=== PATIENT | male | born 1940 | race Caucasian/White ===

== ENCOUNTER 2020-08-07 11:34 | Emergency (ER) | payer OTHER ==
[2020-08-07] MEDS ORDERED: LIDOCAINE 1% MPF 5 ML VIAL ONE (16:50)
[2020-08-07] MEDS ORDERED: TETANUS & DIPHTHERIA TOX,ADULT 0.5 ML VIAL ONE (16:50)
--- NOTE | 2020-08-07 17:17 | EDPHYS ---
Physician Documentation [facility] Name: Pan Garduno Age: 80 yrs Sex: Male : 1940 Arrival Date: 08/07/2020 Time: 11:40 Bed 28 Private MD: Woody Peña H ED Physician Scooter Espinoza HPI: 08/07 17:06 This 80 yrs old Male presents to ER via Ambulatory with complaints of jmm Laceration To Arm. 17:06 Onset: The symptoms/episode began/occurred acutely, just prior to arrival. Associated jmm signs and symptoms: Pertinent negatives: heavy bleeding, loss of consciousness, numbness distal to injury, suspected foreign body. It is unknown whether or not the patient has had similar symptoms in the past. This is an 80 year old male with a history of htn that presents to the ED with complaints of laceration to the right forearm. Patient sttes while using a drill, it spun the metal cutting his forearm. patient denies other injury. Not UTD on tetanus immunizations. . Historical: - Allergies: 12:18 No Known Allergies; ll1 - PMHx: 12:18 Hypertension; ll1 - PSHx: 12:18 knee sx-L; ll1 - Immunization history:: Client reports receiving the 2nd dose of the Covid vaccine, Last tetanus immunization: unknown, Flu vaccine is not up to date. - Social history:: Smoking status: Patient denies any tobacco usage or history of. ROS: 17:06 Constitutional: Negative for fever, chills, and weight loss, Cardiovascular: Negative jmm for chest pain, palpitations, and edema, Respiratory: Negative for shortness of breath, cough, wheezing, and pleuritic chest pain. 17:06 Skin: Positive for laceration(s). 17:06 All other systems are negative. Exam: 17:06 Constitutional: This is a well developed, well nourished patient who is awake, alert, jmm and in no acute distress. Head/Face: atraumatic. Eyes: EOMI, no conjunctival erythema appreciated ENT: Moist Mucus Membranes Neck: Trachea midline, Supple Chest/axilla: Normal chest wall appearance and motion. Cardiovascular: Regular rate and rhythm. No edema appreciated Respiratory: Normal respirations, no respiratory distress appreciated Abdomen/GI: Non distended, soft Back: Normal ROM 17:06 Skin: 2 cm laceration noted to the right forearm. 17:06 Neuro: Orientation: is normal, Mentation: is normal, Memory: is normal. 17:06 Psych: Behavior/mood is pleasant, cooperative. Vital Signs: 12:16 BP 145 / 91; Pulse 72; Resp 17; Temp 98.0; Pulse Ox 96% ; Weight 102.06 kg; Height 5 ll1 ft. 10 in. (177.80 cm); 17:24 BP 154 / 83; Pulse 81; Resp 16 S; Pulse Ox 97% on R/A; ca1 12:16 Body Mass Index 32.28 (102.06 kg, 177.80 cm) ll1 Laceration: 17:09 Wound Repair of 2cm ( 0.8in ) subcutaneous laceration to dorsal aspect of right [facility] forearm. Distal neuro/vascular/tendon intact. Anesthesia: Local anesthetic administered with 2 mls of 1% lidocaine. Wound prep: Moderate cleansing with betadine by me. Skin closed with 4 4-0 Prolene using simple sutures and sterile technique. Patient tolerated well. MDM: 16:25 Patient medically screened. [facility] 17:09 Data reviewed: vital signs, nurses notes. Counseling: I had a detailed discussion with benson the patient and/or guardian regarding: the historical points, exam findings, and any diagnostic results supporting the discharge/admit diagnosis, the need for outpatient follow up, to return to the emergency department if symptoms worsen or persist or if there are any questions or concerns that arise at home. 17:09 ED course: Patient given wound infection return precautions. patient understood and benson agrees with the plan of care. . 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 Exp: ca1 08/05/2021. Lot #: [id number]. } Route: IM; Site: left deltoid; 17:00 Follow up: Response: No adverse reaction ca1 16:51 Drug: Lidocaine (1 %) 20 ml {Note: by PA. Stan} Volume: 20 ml; Route: Infiltration; ca1 Disposition: 17:51 Co-signature as Attending Physician, Scooter Espinoza MD I agree with the assessment and tw4 plan of care. Disposition: 08/07/20 17:10 Discharged to Home. Impression: Right Arm Laceration. - Condition is Stable. - Discharge Instructions: Laceration Care, Adult. - Medication Reconciliation Form, Thank You Letter, Antibiotic Education, Prescription Opioid Use form. - Follow up: Woody Peña DO; When: 7 - 10 days; Reason: Recheck today's complaints, Continuance of care, Staple/Suture removal, Re-evaluation by your physician. Signatures: Stan Pardo PA PA jmm Wadley, Terrence, MD MD tw4 Sandra Lim RN RN ca1 Renu Moore RN RN ll1 Corrections: (The following items were deleted from the chart) 17:25 17:10 08/07/2020 17:10 Discharged to Home. Impression: Right Arm Laceration. Condition ca1 is Stable. Forms are Medication Reconciliation Form, Thank You Letter, Antibiotic Education, Prescription Opioid Use. Follow up: Woody Peña; When: 7 - 10 days; Reason: Recheck today's complaints, Continuance of care, Staple/Suture removal, Re-evaluation by your physician. benson
--- NOTE | 2020-08-07 17:17 | ER ---
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 Coronavirus screen: Client denies travel out of the [place] in the last 14 days. At this time, the client does not indicate any symptoms associated with coronavirus-19. Ebola Screen: Patient denies travel to an Ebola-affected area in the 21 days before illness onset. Complicating Factors: There are no complicating factors for this patient. Initial Sepsis Screen: Does the patient meet any 2 criteria? No. Patient's initial sepsis screen is negative. Does the patient have a suspected source of infection? Yes: Skin breakdown/wound. Risk Assessment: Do you want to hurt yourself or someone else? Patient reports no desire to harm self or others. Onset of symptoms was August 07, 2020. 12:16 Method Of Arrival: Ambulatory ll1 12:16 Acuity: ERIC 3 ll1 Historical: - Allergies: 12:18 No Known Allergies; ll1 - PMHx: 12:18 Hypertension; ll1 - PSHx: 12:18 knee sx-L; ll1 - Immunization history:: Client reports receiving the 2nd dose of the Covid vaccine, Last tetanus immunization: unknown, Flu vaccine is not up to date. - Social history:: Smoking status: Patient denies any tobacco usage or history of. Screenin:15 Abuse screen: Denies threats or abuse. Denies injuries from another. Nutritional ca1 screening: No deficits noted. Tuberculosis screening: No symptoms or risk factors identified. Fall Risk None identified. Assessment: 16:20 General: Appears in no apparent distress. comfortable, Behavior is calm, cooperative, ca1 appropriate for age. Pain: Complains of pain in dorsal aspect of right forearm Pain currently is 2 out of 10 on a pain scale. Neuro: Level of Consciousness is awake, alert, obeys commands, Oriented to person, place, time, situation. Derm: Skin is healthy with good turgor, Skin is pink, warm \T\ dry. Musculoskeletal: Circulation, motion, and sensation intact. Capillary refill < 3 seconds. Injury Description: Laceration sustained to dorsal aspect of right forearm is clean, 2.6 to 7.5 cm long, bleeding moderately, was sustained 4-6 hours ago. 17:24 Reassessment: Patient appears in no apparent distress at this time. Patient is alert, ca1 oriented x 3, equal unlabored respirations, skin warm/dry/pink. Vital Signs: 12:16 BP 145 / 91; Pulse 72; Resp 17; Temp 98.0; Pulse Ox 96% ; Weight 102.06 kg; Height 5 ll1 ft. 10 in. (177.80 cm); 17:24 BP 154 / 83; Pulse 81; Resp 16 S; Pulse Ox 97% on R/A; ca1 12:16 Body Mass Index 32.28 (102.06 kg, 177.80 cm) ll1 ED Course: 11:40 Patient arrived in ED. mr 11:40 Woody Peña DO is Private Physician. mr 11:47 Wound care: to puncture located on right arm was dressed with 4X4s, Kerlix, prior to em1 triage. 12:17 Triage completed. ll1 12:18 Arm band placed on. ll1 16:13 Stan Pardo PA is PHCP. [facility] 16:13 Scooter Espinoza MD is Attending Physician. [facility] 16:14 Sandra Lim, KAILASH is Primary Nurse. ca1 16:15 Patient has correct armband on for positive identification. Bed in low position. Call ca1 light in reach. Side rails up X 1. Pulse ox on. NIBP on. Warm blanket given. 16:37 Wound care: to puncture located on dorsal aspect of right forearm was cleaned with jp3 Hibiclens, debrided using Betadine scrub, irrigated with normal saline, Patient tolerated well. 17:10 Woody Peña DO is Referral Physician. [facility] 17:10 Assist provider with laceration repair on dorsal aspect of right forearm that was ca1 between 2.6 to 7.5 cm using sutures. Set up tray. Performed by Stan SABILLON Dressed with 4X4s, band aid, Kerlix, Patient tolerated well. 17:25 Patient did not have IV access during this emergency room visit. 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 Exp: ca1 08/05/2021. Lot #: [id number]. } Route: IM; Site: left deltoid; 17:00 Follow up: Response: No adverse reaction ca1 16:51 Drug: Lidocaine (1 %) 20 ml {Note: by PA. Stan} Volume: 20 ml; Route: Infiltration; ca1 Outcome: 17:10 Discharge ordered by MD. knowles 17:25 Discharged to home ambulatory. ca1 17:25 Condition: stable 17:25 Discharge instructions given to patient, Instructed on discharge instructions, follow up and referral plans. wound care, Demonstrated understanding of instructions, follow-up care, wound care. 17:25 Patient left the ED. ca1 Signatures: Stan Pardo PA PA jmm Polina Kirk Eric em1 Baldemar Brooks jp3 Sandra Lim RN RN ca1 Renu Moore RN RN ll1
[2020-08-07 18:07] VITALS: TEMP 98
[2020-08-07 18:08] VITALS: BP 154/83; O2SAT 97
== END 2020-08-07 17:25 | disposition home or self-care (01) ==
LOC: ER 11:34
PROC: 0JQG0ZZ Repair Right Lower Arm Subcutaneous Tissue and Fascia, Open Approach (ICD-10-PCS; principal; 2020-08-07)
DX: S51.811A Laceration without foreign body of right forearm, initial encounter (principal); W26.8XXA Contact with other sharp object(s), not elsewhere classified, initial encounter; Y93.9 Activity, unspecified; Y92.9 Unspecified place or not applicable; Z23 Encounter for immunization; I10 Essential (primary) hypertension
CPT/HCPCS: 90471; 90714; 99284

== ENCOUNTER 2020-08-16 06:32 | Emergency (ER) | payer OTHER ==
--- OUTSIDE RECORDS SUMMARY | 2020-08-16 06:34 | XMS REPORT | Continuity of Care Document ---
:1940 Author Organization [facility] t Address [address] [place] [address] Care Team Providers Name Role Phone Unavailable Unavailable Unavailable Payers Payer Name Policy Type Policy Number Effective Date Expiration Date S ource Problems Condition Condition Condition Status Onset Resolution Last Treating Co mments Source Name Details Category Date Date Treatment Clinician Date Effusion Effusion Diagnosis Active [facility] right of right [facility] Pain in Pain in Diagnosis Active [facility] right [facility] elbow elbow [facility] Allergies, Adverse Reactions, Alerts Allergy Allergy Status Severity Reaction(s) Onset Inactive Treating Comm ents Source Name Type Date Date Clinician No Known DA Active U 2019-04 [facility]ie - [facility] 00:[facility]: [place] 00 [facility] No Known DA Active U 2007-04 [facility] Contrast [facility]- [place] [facility] No Known DA Active U 2007-04 [facility] Drug 2- [place] Allergie 00:00: [facility] No Known DA Active U 2007-04 [facility] Food 2- [place] Allergie 00:00: [facility] No Known DA Active U 2007-04 [facility] Other 2- [place] Allergie 00:00: [facility]ope [facility] No Known DA Active U 2007-04 [facility] Drug - [place] Intolera 00:00: Orthope nces [facility] Medications Ordered Filled Start Stop Current Ordering Indication Dosage Frequency Signature Comments Components Source Medication Medication Date Date Medication? Clinician (SIG) Name Name Losartan Losartan Yes Yovani not [facility] Potassium-H Potassium-H Nuñez defined [facility] - [facility] CTZ [facility] Amlodipine Amlodipine Yes Yovani not [facility] Besylate Besylate Nuñez defined Ciarra kes - [facility] Procedures This patient has no known procedures. Encounters Start End Encounter Admission Attending Care Care Encounter Source Date/Time Date/Time Type Type Clinicians Facility Department ID 2017-12-15 2017-12-15 [facility] [id number] [facility] [address] 10:00[facility]00 10:00[facility]00 [facility] - [facility] Results Test Description Test Time Test Comments Results Result Comments Source Novel Coronavirus 2018 Inhouse 2020-03-03 06:54:00 Test Item Value Reference Range Interpretation Comme nts Novel Coronavirus 2018 Negative Negative Posit andres results are indicative of the Inhouse (test code = presenc e [id number] RNA, clinical COVNONPUI) correlation wit h patient historyand other diagnosti c information is necessary to de terminepatient infection status. Positiv e results do not rule outbacterial in fection or co-infection with other viru ses. Negative results do not preclude SA RS-CoV-2 infection andshould not b e used as the sole basis for patient man agementdecisions. Negative result s must be combined with otherclinical o bservations, patient history, and ep idemiologicalinformation. Detection of SA RS-CoV-2 RNA may be affected bysamp le collection methods, storage conditi ons, and/or stageof infection. Halley l RNA mutations, vaccinations, a ntiviraltherapeutics, antibiotics, ch emotherapeutic orimmunosuppres kai drugs have not been evaluated for e ffectson detection. Results are for the identification of SARS-CoV-2 RNA usingthe Stion000 System under th e FDA Emergency UseAuthorizatio n. The testing is performed by jada rsonneltrained in the procedures for the Stion000 moleculardiagno stic SARS-CoV-2 assay in vitro. SPECIMEN COMMENT: NASALNovel Coronavirus 2018 [id number] 06:53:00 Test Item Value Reference Range Interpretation Comments Novel Coronavirus Negative Negative Positive r esults are 2019 Inhouse (test indicativ e of the presence code = COVNONPUI) ofSARS-CoV -2 RNA, clinical correlation wit h patient historyand othe r diagnostic info rmation is necessary to determinepatien t infection status. Positiv e results do not rule out bacterial infection or co -infection with other viru ses. Negative result s do not preclude SARS-C oV-2 infection andsh ould not be used as the dimas e basis for patient managementdecis ions. Negative result s must be combined with otherclinical observations, p atient history, and epidemiological information . Detection of SARS-CoV-2 RNA may be affe cted bysample collec tion methods, storag e conditions, and /or stageof infection. Halley l RNA mutations, vacc inations, antiviraltherap eutics, antibiotics, chemotherapeuti c orimmunosuppres kai drugs have not been e valuated for effectson d etection. Results are for the identification of SARS-CoV-2 RNA usingthe Gary M2000 Sy stem under the FDA Emergen cy UseAuthorizatio n. The testing is perf ormed by delia fischer in the procedures for the Gary M2000 molecular diagnostic SARS-CoV-2 assa y in vitro. SPECIMEN COMMENT: NASAL- MRI LW JNT W/O CONT [id number] 11:27:00 [facility] 1940 Sex: M Patient Name: ISAAC BEASLEY Unit No: [id number] EXAMS: CPT CODE: [id number] MRI LW JNT W/[place] [id number] MRI OF THE LEFT KNEE, WITHOUT CONTRAST DIAGNOSIS: 1. Osteonecrosis of the medial femoral condyle with adjacent reactive bone marrow edema. There is a focal full-thickness chondral defect overlying the osteonecrotic segment. 2. Complex tear posterior horn, body and apex of the anterior horn medial meniscus. 3. Horizontal tear posterior horn lateral meniscus. 4. Markedsynovitis medial aspect of the patellofemoral joint. 5. Mild proximal patellar tendinitis. 6. There is marked atherosclerotic calcification of the popliteal artery. The popliteal vein is not well seen on this examination. This may be further evaluated with lowerextremity Doppler if clinically indicated. 7. Small osteochondroma projects fromthe anterior aspect distal femur. COMPARISON EXAM: None TECHNIQUE: Multiplanar, multisequence MRI is obtained of the left knee without contrast. CLINICAL HISTORY: FINDINGS: MENISCI: Medial and lateral meniscal abnormalities as described. CRUCIATE LIGAMENTS: ACL is intact. PCL is intact.COLLATERAL LIGAMENTS: Medial and lateral collateral ligaments are intact. Mild proximal patellar tendinitis. Distal quadriceps tendon is intact. OSSEOUS STRUCTURES: Osteonecrosis medial femoral condyle with bone marrow edema as described above. Focal chondral abnormality as described. PATELLOFEMORAL COMPARTMENT: No chondral abnormality involving the patellofemoral joint. No patellar tilt, or subluxation. Medial and lateral patellar retinacula are intact. SOFT TISSUES: Moderate joint effusion with synovitis.. Small popl iteal cyst. No soft tissue masses. [facility] NAME: ISAAC BEASLEY [address] [facility] PHYS: Ravi Hinkle MD : 1940 AGE: 79 SEX: M [place], [place] [address] LOC: Y.MRI PHONE #: [phone] EXAM DATE:02/23/2020 STATUS: REG CLI FAX #: [phone] RAD #: D/C DT PAGE 1 Signed Report (CONTINUED) Patient Name: ISAAC BEASLEY Unit No: [id number] EXAMS: CPT CODE: [id number] MRI LW JNT W/[place] [address] <Continued> at 1127 Reported and signed by: Alessia Cannon MD CC: Ravi Her MD Technologist: JESSICA NOWAK MRI Transcribed D/ (1127) AngeliqueGVG [facility] NAME: ISAAC BEASLEY [address] [facility] PHYS: Ravi Hinkle MD : 1940 AGE: 79 SEX: M [place], [place] [address] LOC: Y.MRI PHONE #: [phone] EXAM DATE: 02/23/2020 STATUS: REG CLI FAX #:[phone] RAD #: D/C DT PAGE 2 Signed Report Patient Name: ISAAC BEASLEY Unit No: [id number] EXAMS: CPT CODE: [id number] MRI LW JNT W/[place] [address] <Continued> Orig Print D/T: S: 02/23/2020 (1130) [facility] NAME: ISAAC BEASLEY [address] [facility] PHYS: Ravi Hinkle MD : 1940 AGE: 79 SEX:M [place], [place] [address] LOC: Y.MRI PHONE #: [phone] EXAM DATE: 02/23/2020 STATUS: REG CLI FAX #: [phone] RAD #: D/C DT PAGE 3 Signed Report
--- NOTE | 2020-08-16 06:44 | EDPHYS ---
Physician Documentation [facility] Name: Pan Garduno Age: 80 yrs Sex: Male : 1940 Arrival Date: 08/16/2020 Time: 06:33 Bed 17 Private MD: ED Physician Anders Rosas HPI: 08/16 06:40 This 80 yrs old Male presents to ER via Unassigned with complaints of Suture rn Removal. 06:40 The patient has sutures on the right arm. Previous treatment: The patient was initially rn treated 9 day(s) ago. Sutures/marlen progress:. The patient has not experienced similar symptoms in the past. Reports sutures placed 9 days ago, told to return 7-10 days, states single suture seems to have fallen out accidentally. No other complication. No drainage. . Historical: - PMHx: 06:43 Hypertension; iw - PSHx: 06:43 knee sx-L; iw - Immunization history:: Adult Immunizations unknown. - Social history:: Smoking status: unknown. ROS: 06:40 Constitutional: Negative for fever, chills, and weight loss, MS/Extremity: Negative for rn injury and deformity, Skin: Negative for injury, rash, and discoloration. Exam: 06:40 Constitutional: This is a well developed, well nourished patient who is awake, alert, rn and in no acute distress. MS/ Extremity: Pulses equal, no cyanosis. previously sutured wound with [address] right forearm, wound still opens a bit Vital Signs: 06:41 BP 144 / 80; Pulse 63; Resp 16; Pulse Ox 98% on R/A; iw MDM: 06:36 Patient medically screened. rn 06:40 Data reviewed: vital signs, nurses notes, and as a result, I will discharge patient. ED rn course: Sutures not ready to be removed, told him best to wait full 14 days especially with suture fell out prematurely. . Administered Medications: No medications were administered Disposition: 08/16/20 06:44 Discharged to Home. Impression: Encounter for removal of sutures - Not ready to be removed. - Condition is Stable. - Discharge Instructions: Stitches, Marlen, or Adhesive Wound Closure, Wound Closure Removal. - Medication Reconciliation Form, Thank You Letter, Antibiotic Education, Prescription Opioid Use form. - Follow up: Emergency Department; When: 08/21/2020; Reason: Staple/Suture removal. - Problem is an ongoing problem. - Symptoms have improved. Signatures: Allie Bloom RN RN iw Nieto, Roman, MD MD rn Roque, Raymond, RN RN rr5 Corrections: (The following items were deleted from the chart) 06:49 06:44 08/16/2020 06:44 Discharged to Home. Impression: Encounter for removal of sutures rr5 - Not ready to be removed. Condition is Stable. Forms are Medication Reconciliation Form, Thank You Letter, Antibiotic Education, Prescription Opioid Use. Follow up: Emergency Department; When: 08/21/2020; Reason: Staple/Suture removal. Problem is an ongoing problem. Symptoms have improved. rn
--- NOTE | 2020-08-16 06:44 | ER ---
Nurse's Notes [facility] Name: Pan Garduno Age: 80 yrs Sex: Male : 1940 Arrival Date: 08/16/2020 Time: 06:33 Bed 17 Private MD: Diagnosis: Encounter for removal of sutures-Not ready to be removed Presentation: 08/16 06:41 Chief complaint: Patient states: here for suture removal to right forearm X 10 days iw ago. Coronavirus screen: At this time, the client does not indicate any symptoms associated with coronavirus-19. Ebola Screen: Patient negative for fever greater than or equal to 101.5 degrees Fahrenheit, and additional compatible Ebola Virus Disease symptoms Patient denies exposure to infectious person. Patient denies travel to an Ebola-affected area in the 21 days before illness onset. No symptoms or risks identified at this time. Initial Sepsis Screen: Does the patient meet any 2 criteria? No. Patient's initial sepsis screen is negative. Does the patient have a suspected source of infection? No. Patient's initial sepsis screen is negative. Risk Assessment: Do you want to hurt yourself or someone else? Patient reports no desire to harm self or others. Onset of symptoms was August 07, 2020. 06:41 Method Of Arrival: Ambulatory iw 06:41 Acuity: ERIC 5 iw Historical: - PMHx: 06:43 Hypertension; iw - PSHx: 06:43 knee sx-L; iw - Immunization history:: Adult Immunizations unknown. - Social history:: Smoking status: unknown. Screenin:43 Abuse screen: Denies threats or abuse. Denies injuries from another. Nutritional iw screening: No deficits noted. Tuberculosis screening: No symptoms or risk factors identified. Fall Risk None identified. Assessment: 06:43 General: Appears in no apparent distress. Behavior is calm, cooperative. Pain: Denies iw pain. Neuro: Level of Consciousness is awake, alert, obeys commands, Oriented to person, place, time, situation, Moves all extremities. Full function. 06:43 Reassessment: pt advised by Dr. Rosas to return to ER after the full two weeks, wound iw has not completely healed at this time. Vital Signs: 06:41 BP 144 / 80; Pulse 63; Resp 16; Pulse Ox 98% on R/A; iw ED Course: 06:33 Patient arrived in ED. ag3 06:36 Anders Rosas MD is Attending Physician. rn 06:42 Triage completed. iw 06:42 Arm band placed on. iw 06:46 Allie Bloom RN is Primary Nurse. iw 06:46 Patient has correct armband on for positive identification. iw 06:46 No provider procedures requiring assistance completed. Patient did not have IV access iw during this emergency room visit. Administered Medications: No medications were administered Outcome: 06:44 Discharge ordered by . rn 06:49 Discharged to home ambulatory. rr5 06:49 Condition: stable 06:49 Discharge instructions given to patient, Instructed on discharge instructions, follow up and referral plans. Demonstrated understanding of instructions, follow-up care. 06:49 Patient left the ED. rr5 Signatures: Allie Bloom, KAILASH RN Anders Rosas MD MD rn Gomez, Alice ag3 Pan Perez RN RN rr5
[2020-08-16 07:09] VITALS: BP 144/80; O2SAT 98
== END 2020-08-16 06:49 | disposition home or self-care (01) ==
LOC: ER 06:32
DX: Z48.02 Encounter for removal of sutures (principal)
CPT/HCPCS: 99281

== ENCOUNTER 2020-08-21 06:27 | Emergency (ER) | payer OTHER ==
--- OUTSIDE RECORDS SUMMARY | 2020-08-21 06:31 | XMS REPORT | Continuity of Care Document ---
:1940 Author Organization [facility] t Address [address] [place] [address] Care Team Providers Name Role Phone Unavailable [...] Allergie - Clear s 00:00: Bahena 00 [facility] No Known DA Active U 2007-04 [facility] [...] Nuñez defined [facility] Amlodipine Amlodipine Yes Yovani not C [facility] Besylate Besylate Nuñez defined Ciarra kes - [facility] Procedures This patient has no known procedures. Encounters Start End Encounter Admission Attending Care Care Encounter Source Date/Time Date/Time Type Type Clinicians Facility Department ID 2017-12-15 2017-12-15 [facility] [id number] 10:00:00 10:00:00 [facility] Results Test Description Test Time Test Comments Results Result Comments Source Novel Coronavirus 2018 Inhouse 2020-03-03 06:54:00 Test Item Value Reference Range Interpretation Comme nts Novel Coronavirus 2018 Negative Negative Posit andres results are indicative of the Inhouse (test code = presenc e [id number]-[id number] RNA, clinical COVNONPUI) correlation wit h patient [...] for the identification of SARS-CoV-2 RNA usingthe [employer] System under th e FDA Emergency UseAuthorizatio n. The testing is performed by jada rsonneltrained in the procedures for the [employer] moleculardiagno stic SARS-CoV-2 assay in vitro. SPECIMEN COMMENT: NASALNovel Coronavirus 2018 [id number] 06:53:00 Test Item Value Reference Range Interpretation [...] COMMENT: NASAL- MRI LW JNT W/O CONT [id number] 11:27:00 [facility] 1940 Sex: M Patient Name: ISAAC BEASLEY Unit No: [id number] EXAMS: CPT CODE: [id number] MRI LW JNT W/[place] [address] MRI OF THE LEFT KNEE, WITHOUT CONTRAST [...] popl iteal cyst. No soft tissue masses. [facility] NAME: ISAAC BEASLEY [address] [facility] PHYS: Ravi Hinkle MD : 1940 AGE: 79 SEX: M [place], [place] [address] LOC: Y.MRI PHONE #: [phone] EXAM DATE:02/23/2020 STATUS: REG CLI FAX #: [phone] RAD #: D/C DT PAGE 1 Signed Report (CONTINUED) Patient Name: ISAAC BEASLEY Unit No: [id number] EXAMS: CPT CODE: [id number] MRI LW JNT W/[place] [address] <Continued> at 1127 Reported and signed by: Alessia Cannon MD CC: Ravi Her MD Technologist: JESSICA NOWAK MRI Transcribed D/ (1127) AngeliqueGVG [facility] NAME: ISAAC BEASLEY [address] [facility] PHYS: Ravi Hinkle MD : 1940 AGE: 79 SEX: M [place], [place] [address] LOC: Y.MRI PHONE #: [phone] EXAM DATE: 02/23/2020 STATUS: REG CLI FAX #:[phone] RAD #: D/C DT PAGE 2 Signed Report Patient Name: ISAAC BEASLEY Unit No: [id number] EXAMS: CPT CODE: [id number] MRI LW JNT W/[place] [address] <Continued> Orig Print D/T: S: 02/23/2020 (1130) [facility] NAME: ISAAC BEASLEY [address] [facility] PHYS: Ravi Hinkle MD : 1940 AGE: 79 SEX:M [place], [place] [address] LOC: Y.MRI PHONE #: [phone] EXAM DATE: 02/23/2020 STATUS: REG CLI FAX #: [phone] RAD #: D/C DT PAGE 3 Signed Report
--- NOTE | 2020-08-21 06:47 | EDPHYS ---
Physician Documentation [facility] Name: Pan Garduno Age: 80 yrs Sex: Male : 1940 Arrival Date: 08/21/2020 Time: 06:28 Bed 13 Private MD: ED Physician oDron Estrada HPI: 08/21 06:39 This 80 yrs old Male presents to ER via Ambulatory with complaints of Suture mh7 Removal. 06:39 The patient has sutures on the right forearm. mh7 06:40 Previous treatment: The patient was initially treated on August 07, 2020, the care was mh7 rendered at [facility], Treatment type: The patient's original treatment included sutures, Previous recheck: the patient's last recheck was 5 day(s) ago. Sutures/miguelina progress: The patient has no c/o's. The wound is well-healing with no redness, swelling, discharge, or dehiscence reported. Historical: - Allergies: 06:38 No Known Allergies; rr5 - PMHx: 06:38 Hypertension; rr5 - Immunization history:: Adult Immunizations up to date. - Social history:: Smoking status: unknown. ROS: 06:40 Constitutional: Negative for fever, chills, and weight loss, Eyes: Negative for injury, mh7 pain, redness, and discharge, ENT: Negative for injury, pain, and discharge, Neck: Negative for injury, pain, and swelling, Cardiovascular: Negative for chest pain, palpitations, and edema, Respiratory: Negative for shortness of breath, cough, wheezing, and pleuritic chest pain, Abdomen/GI: Negative for abdominal pain, nausea, vomiting, diarrhea, and constipation, Back: Negative for injury and pain, : Negative for injury, bleeding, discharge, and swelling, Neuro: Negative for headache, weakness, numbness, tingling, and seizure, Psych: Negative for depression, anxiety, suicide ideation, homicidal ideation, and hallucinations, Allergy/Immunology: Negative for hives, rash, and allergies, Endocrine: Negative for neck swelling, polydipsia, polyuria, polyphagia, and marked weight changes, Hematologic/Lymphatic: Negative for swollen nodes, abnormal bleeding, and unusual bruising. 06:40 MS/extremity: Negative for decreased range of motion, ecchymosis, erythema, pain, paresthesias, rash, swelling, tenderness, tingling, warmth. 06:40 Skin: Negative for cellulitis, ecchymosis, erythema, hematoma, rash, swelling. Exam: 06:40 Constitutional: This is a well developed, well nourished patient who is awake, alert, mh7 and in no acute distress. Head/Face: Normocephalic, atraumatic. 06:40 Neuro: Awake and alert, GCS 15, oriented to person, place, time, and situation. Cranial nerves II-XII grossly intact. Motor strength 5/5 in all extremities. Sensory grossly intact. Cerebellar exam normal. Normal gait. Psych: Awake, alert, with orientation to person, place and time. Behavior, mood, and affect are within normal limits. 06:40 Musculoskeletal/extremity: Extremities: noted in the right forearm: 2 sutures in well healed wound without signs of infection, ROM: intact in all extremities, Circulation is intact in all extremities. Sensation intact. Compartment Syndrome exam of affected extremity: is normal. no pain, no numbness, no tingling, no sensation deficit, no palor, no weak pulses, Joints: All joints appear normal with full range of motion. Weight bearing: able to fully bear weight, without difficulty, Tendon exam: specific tendon testing normal through active and passive range of motion 06:40 Skin: injury, 2 sutures in right forearm well healed wound without signs of infection. Vital Signs: 06:36 BP 147 / 75; Pulse 65; Resp 16; Temp 97.5; Pulse Ox 99% ; Weight 100.24 kg; Height 5 rr5 ft. 10 in. (177.80 cm); Pain 0/10; 06:36 Body Mass Index 31.71 (100.24 kg, 177.80 cm) rr5 MDM: 06:40 Data reviewed: vital signs, nurses notes, old medical records. Data interpreted: Pulse mh7 oximetry: on room air is 99 %. Interpretation: normal. Counseling: I had a detailed discussion with the patient and/or guardian regarding: the historical points, exam findings, and any diagnostic results supporting the discharge/admit diagnosis, to return to the emergency department if symptoms worsen or persist or if there are any questions or concerns that arise at home. Response to treatment: the patient's symptoms have resolved after treatment, the patient's blood pressure is in an acceptable range, mental status has returned to baseline, the patient no longer shows bradycardia, the patient is not short of breath, the patient is not tachycardic, the patient's pain is gone, the patient's temperature has normalized. 06:47 Patient medically screened. 7 Administered Medications: No medications were administered Disposition: 08/21/20 06:47 Discharged to Home. Impression: Encounter for removal of sutures. - Condition is Stable. - Discharge Instructions: Suture Removal, Care After. - Medication Reconciliation Form, Thank You Letter, Antibiotic Education, Prescription Opioid Use form. - Follow up: Private Physician; When: As needed; Reason: Worsening of condition. - Problem is an ongoing problem. - Symptoms are resolved. Signatures: Pan Perez RN RN rr5 Doron Estrada MD MD mh7 Corrections: (The following items were deleted from the chart) 06:49 06:47 08/21/2020 06:47 Discharged to Home. Impression: Encounter for removal of rr5 sutures. Condition is Stable. Forms are Medication Reconciliation Form, Thank You Letter, Antibiotic Education, Prescription Opioid Use. Follow up: Private Physician; When: As needed; Reason: Worsening of condition. Problem is an ongoing problem. Symptoms are resolved. mh7
--- NOTE | 2020-08-21 06:47 | ER ---
Nurse's Notes [facility] Name: Pan Garduno Age: 80 yrs Sex: Male : 1940 Arrival Date: 08/21/2020 Time: 06:28 Bed 13 Private MD: Diagnosis: Encounter for removal of sutures Presentation: 08/21 06:36 Chief complaint: Patient states: for removal of suture. Coronavirus screen: Client rr5 denies travel out of the [place] in the last 14 days. At this time, the client does not indicate any symptoms associated with coronavirus-19. Ebola Screen: Patient negative for fever greater than or equal to 101.5 degrees Fahrenheit, and additional compatible Ebola Virus Disease symptoms Patient denies exposure to infectious person. Patient denies travel to an Ebola-affected area in the 21 days before illness onset. Initial Sepsis Screen: Does the patient meet any 2 criteria? No. Patient's initial sepsis screen is negative. Does the patient have a suspected source of infection? No. Patient's initial sepsis screen is negative. Risk Assessment: Do you want to hurt yourself or someone else? Patient reports no desire to harm self or others. Onset of symptoms was August 21, 2020. 06:36 Method Of Arrival: Ambulatory rr5 06:36 Acuity: ERIC 5 rr5 Historical: - Allergies: 06:38 No Known Allergies; rr5 - PMHx: 06:38 Hypertension; rr5 - Immunization history:: Adult Immunizations up to date. - Social history:: Smoking status: unknown. Screenin:40 Abuse screen: Denies threats or abuse. Denies injuries from another. Nutritional rr5 screening: No deficits noted. Tuberculosis screening: No symptoms or risk factors identified. Fall Risk None identified. Total Sutton Fall Scale indicates No Risk (0-24 pts). Assessment: 06:38 General: Appears in no apparent distress. comfortable, Behavior is calm, cooperative, rr5 appropriate for age. Pain: Denies pain. Neuro: Level of Consciousness is awake, alert, obeys commands, Oriented to person, place, time. Cardiovascular: Capillary refill < 3 seconds Patient's skin is warm and dry. Respiratory: Airway is patent Respiratory effort is even, unlabored, Respiratory pattern is regular, symmetrical. GI: No signs and/or symptoms were reported involving the gastrointestinal system. : No signs and/or symptoms were reported regarding the genitourinary system. EENT: No signs and/or symptoms were reported regarding the EENT system. Derm: Skin is intact, is healthy with good turgor, Skin temperature is warm Reports suture removal. Musculoskeletal: Capillary refill < 3 seconds. 06:40 Reassessment: suture removed by provider at right forearm. rr5 06:49 Reassessment: Patient appears in no apparent distress at this time. Patient is alert, rr5 oriented x 3, equal unlabored respirations, skin warm/dry/pink. discharge instruction given and explained without complaints made. Vital Signs: 06:36 BP 147 / 75; Pulse 65; Resp 16; Temp 97.5; Pulse Ox 99% ; Weight 100.24 kg; Height 5 rr5 ft. 10 in. (177.80 cm); Pain 0/10; 06:36 Body Mass Index 31.71 (100.24 kg, 177.80 cm) rr5 ED Course: 06:28 Patient arrived in ED. bp1 06:31 Doron Estrada MD is Attending Physician. mh7 06:36 Pan Perez, RN is Primary Nurse. rr5 06:38 Triage completed. rr5 06:38 Arm band placed on right wrist. rr5 06:40 Patient has correct armband on for positive identification. rr5 06:40 No provider procedures requiring assistance completed. Patient did not have IV access rr5 during this emergency room visit. Administered Medications: No medications were administered Outcome: 06:47 Discharge ordered by . mh7 06:49 Discharged to home ambulatory. rr5 06:49 Condition: stable 06:49 Discharge instructions given to patient, Instructed on discharge instructions, follow up and referral plans. Demonstrated understanding of instructions, follow-up care. 06:49 Patient left the ED. rr5 Signatures: Pan Perez, RN RN rr5 Ashlyn Negrete bp1 Doron Estrada MD MD [facility]
[2020-08-21 06:56] VITALS: BP 147/75; TEMP 97.5; O2SAT 99
== END 2020-08-21 06:49 | disposition home or self-care (01) ==
LOC: ER 06:27
DX: Z48.02 Encounter for removal of sutures (principal)
CPT/HCPCS: 99281

== ENCOUNTER 2024-04-02 08:01 | Day surgery (SDC) | payer OTHER ==
[2024-04-02 08:38] LABS: Absolute Basophils 0.1 K/uL (0-0.5); Absolute Eosinophils 0.2 K/uL (0-0.5); Absolute Lymphocytes (CBC) 1.9 K/uL (0.7-4.9); Absolute Monocytes 0.7 K/uL (0.1-1.3); Absolute Neutrophil 4.7 K/uL (1.8-8.0); Basophils % 0.8 % (0-1.3); Eosinophils % 2.4 % (0-4.4); Hematocrit 40.6 % (39.6-49.0); Hemoglobin 13.7 g/dL (13.6-17.9); Lymphocytes % 25.8 % (15.3-44.8); MCH 30.1 pg (27.0-35.0); MCHC 33.8 g/dL (32.0-36.0); MCV 88.9 fL (80-100); MPV 7.2 fL (7.6-11.3); Monocytes % 9.5 % (3.3-12.3); Neutrophils % 61.5 % (41.7-73.7); Nucleated Red Blood Cells % 0.1 % (0-0); Platelets 344 thou/uL (152-406); RBC Red Blood Cell Count 4.56 M/uL (4.33-5.43); Red Cell Distribution Width 14.3 % (12.1-15.2)
[2024-04-02 08:51] LABS: Albumin 3.8 g/dL (3.4-5.0); Albumin/Globulin Ratio 1.2 (1.1-1.8); Anion Gap 6.7 mEq/L (5.0-15.0); Bilirubin Total 0.9 mg/dL (0.2-1.0); Globulin 3.3 g/dL (2.3-3.5); Potassium 3.7 mEq/L (3.5-5.1); Protein, Total 7.1 g/dL (6.4-8.2)
[2024-04-02] MEDS: Ringers Lactate 1,000 ML IV ONE (09:00)
[2024-04-02] MEDS ORDERED: propofoL 200 MG/20 ML VIAL IV ONE (11:47)
[2024-04-02] MEDS ORDERED: FENTANYL CITR 100 MCG/2 ML ONE (11:47)
[2024-04-02] MEDS ORDERED: LIDOCAINE 1% MPF 5 ML VIAL ONE (11:47)
[2024-04-02] MEDS ORDERED: POVIDONE-IODINE 5% EYE DROPS ONE (12:00)
[2024-04-02] MEDS: LIDOCAINE HCL/EPINEPHRINE 20 ML MDV ONE (12:26)
[2024-04-02] MEDS ORDERED: EPHEDRINE SULF 50 MG/ML VIAL ONE (12:37)
--- NOTE | 2024-04-02 13:28 | P.OP ---
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 The patient was positioned supinely and the face was prepped with Betadine draped in sterile fashion. The previous biopsy site was noted on the right up per lip just inferior to the right nostril and measured approximately 5 mm. A margin of clinically negative tissue was drawn around the biopsy site and Bovie electrocautery was used to incise through the skin and subcutaneous tissue, elevating the lesion from its soft tissue attachments. A suture was placed at the superiormost aspect and indicated as 12:00 for orientation and sent to pathology for frozen section. The surgical defect measured 1.5 x 1.5 cm and electrocautery was used to obtain hemostasis. Intraoperative consultation with the pathologist was performed for margin status. The peripheral margins were all negative with nests of residual basal cell carcinoma noted within the specimen. On 1 section the deep margin was close but negative and no additional resection was necessary. On return to the operating room, the defect was examined and decision was made to proceed with complex closure. A 3 x 5 mm triangle of tissue was removed laterally along the inferior rim of the right nasal ala. A 4 x 7 mm triangle of tissue was removed medially along the base of the columella. The tissues were then elevated on the inferior aspect of the surgical wound in order to mobilize the skin of the lip. This allowed for mobilization of the tissues and deep sutures were placed in the midportion in order to approximate the surgical defect and an O to Y fashion. The skin was closed in a running fashion using 5- 0 fast absorbing sutures. The incision was cleaned and dried. Some antibiotic ointment was applied and the patient was returned to care of anesthesia for awakening extubation in the operating room which proceeded out difficulty. Complications: None Fluids & blood products: See anesthesia record Transferred to: Recovery Room Condition: Good
[2024-04-02 13:43] VITALS: O2SAT 96
[2024-04-02 14:25] VITALS: BP 141/61; TEMP 97.9
--- NOTE | 2024-04-02 14:44 | EKG ---
Test Date: 2024-04-02 Test Time: 09:31:40 Associate Civil Engineer: LEXI MEASUREMENT RESULTS: Intervals: Rate: 66 LA: 354 QRSD: 104 QT: 414 QTc: 434 [place]: P: 59 LA: 354 QRS: -42 T: 53 INTERPRETIVE STATEMENTS: Sinus rhythm with 1st degree AV block with occasional premature ventricular complexes Left axis deviation Possible Anterior infarct, age undetermined Abnormal ECG Compared to ECG 12/07/2004 10:48:00 Ventricular premature complex(es) now present Left-axis deviation now present Myocardial infarct finding now present Electronically Signed On 04-02-24 14:43:54 SOLUTION DIRECTOR by Samy Shah
== END 2024-04-02 14:17 | disposition home or self-care (01) ==
LOC: OR 08:01
PROVIDERS: ATTEND Otolaryngology
PROC: 0JB10ZZ Excision of Face Subcutaneous Tissue and Fascia, Open Approach (ICD-10-PCS; 2024-04-02)
PROC: 0JR107Z Replacement of Face Subcutaneous Tissue and Fascia with Autologous Tissue Substitute, Open Approach (ICD-10-PCS; principal; 2024-04-02 10:15)
DX: C44.01 Basal cell carcinoma of skin of lip (principal); L90.5 Scar conditions and fibrosis of skin
CPT/HCPCS: 11642; 93005; 85025; 36415; 88331; 88332; 88305; 80053; 15769; J2704; J2003; J3010; J7120